=== PATIENT | female | born 1955 | race Caucasian/White ===

== ENCOUNTER 2018-12-07 17:30 | Inpatient (IN) ==
[2018-12-07] MEDS ORDERED: SODIUM CHLORIDE 0.9% 1,000 ML IV STA (18:16)
[2018-12-07] MEDS ORDERED: methylPREDNISolone SOD SUC 125 MG/2 ML VIAL IV STA (18:16)
[2018-12-07] MEDS ORDERED: ALBUTEROL/IPRATROPIUM 3 ML NEB RESP TX STA ×2 (18:16→19:54)
[2018-12-07 18:39] LABS: Basophils # 0.1 10*3/uL (0.0-0.2); Basophils % 0.5 % (0.0-0.8); Eosinophils % 0.1 % (0.00-10.9); Hematocrit 41.5 VOL% (35.7-47.0); Hemoglobin 13.4 GM/DL (12.0-16.0); Immature Granulocytes % 0.5 %; Immature Granulocytes Absolute 0.05 #; Lymphocytes # 0.8 10*3/uL (1.4-4.0); Lymphocytes % 7.6 % (21.3-54.2); Mean Corpuscular HGB Conc 32.3 GM/DL (32-36); Mean Corpuscular Hemoglobin 30 PG (27-34); Mean Corpuscular Volume 92.8 FL (87-102); Mean Platelet Volume 9.8 FL (9.6-12.0); Monocytes # 1.8 10*3/uL (0.11-0.8); Monocytes % 16.9 % (1.7-12.7); Neutrophils # 8.1 10*3/uL (1.4-7.4); Neutrophils % 74.4 % (38.7-73.9); Platelet Count 299 T/CUMM (130-400); Red Blood Count 4.47 MC/CUMM (3.8-5.5); Red Cell Distribution Width 12.6 % (9.3-17.3); White Blood Count 10.9 T/CUMM (4-12)
[2018-12-07 18:47] LABS: INR 1.2; PT Patient Result 12.5 SECS
[2018-12-07 18:57] LABS: Albumin 3.3 G/DL (3.4-5.0); Bilirubin,Total 0.4 MG/DL (0.2-1.0); Calcium 9.5 MG/DL (8.5-10.1); Osmolality,Calculated 285.4 MOS/KG (273-304); Potassium 3.2 MMOL/L (3.5-5.1); Total Protein 8.2 G/DL (6.4-8.3)
[2018-12-07] MEDS ORDERED: POTASSIUM BICARB EFFERVESCENT 25 MEQ TABLET PO ONE (19:46)
[2018-12-07] MEDS ORDERED: LEVOFLOXACIN INJ 500 MG in PREMIX 1 EACH IV STA (20:01)
[2018-12-07] MEDS ORDERED: ALBUTEROL 2.5 MG/3 ML NEB RESP TX PRN (20:05)
[2018-12-07] MEDS ORDERED: MORPHINE 4 MG/1 ML VIAL IV PRN (20:05)
[2018-12-07] MEDS ORDERED: NICOTINE 21 MG/24 HR PATCH TRANSDERM PRN (20:05)
[2018-12-07] MEDS ORDERED: diphenhydrAMINE CAP 25 MG CAPSULE PO PRN (20:05)
[2018-12-07] MEDS ORDERED: BISACODYL 5 MG TABLET PO PRN (20:05)
[2018-12-07] MEDS ORDERED: guaiFENesin/DM ER 600-30 MG TABLET PO PRN (20:05)
[2018-12-07 21:07] LABS: ABG Base Excess -0.4 MMOL/L (-2.5-2.5); ABG HCO3 22.9 MMOL/L (20-26); ABG Oxygen Saturation 95.1 % (95-100); ABG PCO2 33.6 MM HG (35-48); ABG PH 7.451 (7.35-7.45); ABG PO2 74.6 MM HG (80-95); ABG TCO2 23.9 MMOL/L (23-27); Allen Test Positive
[2018-12-07 21:20] LABS: Anisocytosis Slight; Lymphocytes 7 % (20-55); Segmented Neutrophils 81 % (50-85); Total Cells Counted 100
[2018-12-07 21:21] LABS: Macrocytosis Slight; Polychromasia Slight
[2018-12-07 21:22] LABS: Ovalocytes Slight; Platelet Estimate Normal
[2018-12-07] MEDS: ACETAMINOPHEN 325 MG TABLET PO PRN (22:18)
[2018-12-07] MEDS: cefTRIAXone 1,000 MG in SYRINGE 1 EACH IV SCH (22:19)
[2018-12-07] MEDS: ONDANSETRON 4 MG/2 ML VIAL IV PRN (22:20)
[2018-12-08] MEDS: ERGOCALCIFEROL 50,000 UNIT CAPSULE PO SCH (00:49)
[2018-12-08] MEDS: ALBUTEROL/IPRATROPIUM 3 ML NEB RESP TX SCH ×5 (00:55→20:23)
[2018-12-08 04:48] LABS: Basophils % 0.3 % (0.0-0.8); Hematocrit 36.9 VOL% (35.7-47.0); Hemoglobin 11.7 GM/DL (12.0-16.0); Immature Granulocytes % 0.6 %; Immature Granulocytes Absolute 0.04 #; Lymphocytes # 0.3 10*3/uL (1.4-4.0); Mean Corpuscular HGB Conc 31.7 GM/DL (32-36); Mean Corpuscular Hemoglobin 30 PG (27-34); Mean Corpuscular Volume 93.7 FL (87-102); Mean Platelet Volume 10.2 FL (9.6-12.0); Monocytes # 0.3 10*3/uL (0.11-0.8); Neutrophils # 6.1 10*3/uL (1.4-7.4); Neutrophils % 90.1 % (38.7-73.9); Platelet Count 260 T/CUMM (130-400); Red Blood Count 3.94 MC/CUMM (3.8-5.5); Red Cell Distribution Width 12.6 % (9.3-17.3); White Blood Count 6.8 T/CUMM (4-12)
[2018-12-08 05:14] LABS: Calcium 8.7 MG/DL (8.5-10.1); Osmolality,Calculated 289.4 MOS/KG (273-304); Potassium 3.4 MMOL/L (3.5-5.1)
[2018-12-08] MEDS: methylPREDNISolone SOD SUC 40 MG/1 ML VIAL IV SCH ×3 (06:48→20:27)
[2018-12-08 08:18] LABS: Apearance,Urine CLEAR (Clear); Bilirubin,Urine Negative (Negative); Blood, Urine Negative (Negative); Glucose,Urine (UA) Negative (Negative); Hyaline Casts,Urine 5 /LPF (0-3); Ketones,Urine 5 mg/dL (Negative); Mucus,Urine Occasional /LPF (Occasional); Nitrite,Urine Negative (Negative); Protein,Urine 30 MG/DL; RBC,Urine 1 /HPF (0-4); Squamous Epithelial Cell,Urine Occasional /HPF (0-10); Urine Color Yellow (Yellow); Urine Specific Gravity 1.027 (1.001-1.035); WBC,Urine 4 /HPF (0-6)
[2018-12-08] MEDS ORDERED: TURMERIC CURCUMIN 500 MG PO SCH (09:00)
[2018-12-08] MEDS ORDERED: BUDESONIDE/FORMOTEROL 160-4.5 INHALER 6 GM INH SCH (09:00)
[2018-12-08] MEDS: ATORVASTATIN 10 MG TABLET PO SCH (09:03)
[2018-12-08] MEDS: ACETAMINOPHEN 325 MG TABLET PO PRN (09:03)
[2018-12-08] MEDS: DILTIAZEM CD 240 MG CAPSULE PO SCH (09:04)
[2018-12-08] MEDS: RIVAROXABAN 20 MG TABLET PO SCH ×2 (09:05→16:56)
[2018-12-08] MEDS: TOLTERODINE LA 4 MG CAPSULE PO SCH (09:05)
[2018-12-08] MEDS: SERTRALINE 50 MG TABLET PO SCH (09:06)
[2018-12-08] MEDS: DULoxetine 30 MG CAPSULE PO SCH (09:06)
[2018-12-08] MEDS: LOSARTAN/HCTZ 50-12.5 MG TABLET PO SCH (09:06)
[2018-12-08] MEDS: BUDESONIDE/FORMOTEROL 160-4.5 INHALER 6 GM INH SCH (09:10)
[2018-12-08] MEDS: POTASSIUM CHLORIDE 20 MEQ TABLET PO SCH ×3 (10:12→21:24)
[2018-12-08] MEDS: cefTRIAXone 1,000 MG in SYRINGE 1 EACH IV SCH (20:30)
[2018-12-08] MEDS: ZALEPLON 5 MG CAPSULE PO PRN (21:19)
[2018-12-09] MEDS: ALBUTEROL/IPRATROPIUM 3 ML NEB RESP TX SCH ×6 (00:34→23:15)
[2018-12-09] MEDS: ONDANSETRON 4 MG/2 ML VIAL IV PRN ×2 (01:35→23:05)
[2018-12-09] MEDS: POTASSIUM CHLORIDE 20 MEQ TABLET PO SCH (04:01)
[2018-12-09 05:05] LABS: Calcium 8.7 MG/DL (8.5-10.1); Osmolality,Calculated 293.4 MOS/KG (273-304); Potassium 3.7 MMOL/L (3.5-5.1)
[2018-12-09] MEDS: methylPREDNISolone SOD SUC 40 MG/1 ML VIAL IV SCH ×3 (05:27→21:01)
[2018-12-09] MEDS: DULoxetine 30 MG CAPSULE PO SCH (08:29)
[2018-12-09] MEDS: LOSARTAN/HCTZ 50-12.5 MG TABLET PO SCH (08:29)
[2018-12-09] MEDS: RIVAROXABAN 20 MG TABLET PO SCH (08:30)
[2018-12-09] MEDS: DILTIAZEM CD 240 MG CAPSULE PO SCH (08:30)
[2018-12-09] MEDS: SERTRALINE 50 MG TABLET PO SCH (08:30)
[2018-12-09] MEDS: TOLTERODINE LA 4 MG CAPSULE PO SCH (08:30)
[2018-12-09] MEDS: ATORVASTATIN 10 MG TABLET PO SCH (08:30)
[2018-12-09] MEDS: BUDESONIDE/FORMOTEROL 160-4.5 INHALER 6 GM INH SCH (08:31)
[2018-12-09] MEDS ORDERED: EMBEDA PO SCH (09:00)
[2018-12-09] MEDS: cefTRIAXone 1,000 MG in SYRINGE 1 EACH IV SCH (21:02)
[2018-12-09] MEDS: ACETAMINOPHEN 325 MG TABLET PO PRN (23:04)
[2018-12-10] MEDS: ZALEPLON 5 MG CAPSULE PO PRN ×2 (00:05→21:01)
[2018-12-10] MEDS: methylPREDNISolone SOD SUC 40 MG/1 ML VIAL IV SCH ×4 (02:43→21:05)
[2018-12-10] MEDS: ALBUTEROL/IPRATROPIUM 3 ML NEB RESP TX SCH ×6 (03:36→23:30)
[2018-12-10] MEDS: ONDANSETRON 4 MG/2 ML VIAL IV PRN ×3 (03:46→23:34)
[2018-12-10 06:11] LABS: Calcium 8.9 MG/DL (8.5-10.1); Osmolality,Calculated 292.3 MOS/KG (273-304); Potassium 3.4 MMOL/L (3.5-5.1)
[2018-12-10] MEDS ORDERED: POTASSIUM CHLORIDE 20 MEQ TABLET PO ONE (07:24)
[2018-12-10] MEDS: RIVAROXABAN 20 MG TABLET PO SCH (08:33)
[2018-12-10] MEDS: TOLTERODINE LA 4 MG CAPSULE PO SCH (08:33)
[2018-12-10] MEDS: SERTRALINE 50 MG TABLET PO SCH (08:33)
[2018-12-10] MEDS: DULoxetine 30 MG CAPSULE PO SCH (08:33)
[2018-12-10] MEDS: LOSARTAN/HCTZ 50-12.5 MG TABLET PO SCH (08:33)
[2018-12-10] MEDS: ATORVASTATIN 10 MG TABLET PO SCH (08:33)
[2018-12-10] MEDS: DILTIAZEM CD 240 MG CAPSULE PO SCH (08:34)
[2018-12-10] MEDS: BUDESONIDE/FORMOTEROL 160-4.5 INHALER 6 GM INH SCH (08:36)
[2018-12-10] MEDS: ACETAMINOPHEN 325 MG TABLET PO PRN (13:03)
[2018-12-10] MEDS: oxyCODONE/ACETAMINOPHEN 5-325 MG TABLET PO PRN (21:02)
[2018-12-10] MEDS: cefTRIAXone 1,000 MG in SYRINGE 1 EACH IV SCH (21:06)
[2018-12-10] MEDS: PANTOPRAZOLE 40 MG TABLET PO SCH (23:30)
[2018-12-11] MEDS: ACETAMINOPHEN 325 MG TABLET PO PRN ×2 (01:30→20:08)
[2018-12-11] MEDS: ZALEPLON 5 MG CAPSULE PO PRN ×2 (01:30→20:08)
[2018-12-11] MEDS: methylPREDNISolone SOD SUC 40 MG/1 ML VIAL IV SCH ×4 (03:21→20:10)
[2018-12-11] MEDS: ALBUTEROL/IPRATROPIUM 3 ML NEB RESP TX SCH ×6 (03:57→22:48)
[2018-12-11 06:06] LABS: Calcium 8.2 MG/DL (8.5-10.1); Osmolality,Calculated 293.3 MOS/KG (273-304); Potassium 3.4 MMOL/L (3.5-5.1)
[2018-12-11] MEDS: BUDESONIDE/FORMOTEROL 160-4.5 INHALER 6 GM INH SCH (08:35)
[2018-12-11] MEDS: TOLTERODINE LA 4 MG CAPSULE PO SCH (08:35)
[2018-12-11] MEDS: DULoxetine 30 MG CAPSULE PO SCH (08:35)
[2018-12-11] MEDS: POTASSIUM CHLORIDE 20 MEQ TABLET PO SCH ×3 (08:35→18:09)
[2018-12-11] MEDS: LOSARTAN/HCTZ 50-12.5 MG TABLET PO SCH (08:36)
[2018-12-11] MEDS: RIVAROXABAN 20 MG TABLET PO SCH (08:36)
[2018-12-11] MEDS: SERTRALINE 50 MG TABLET PO SCH (08:36)
[2018-12-11] MEDS: DILTIAZEM CD 240 MG CAPSULE PO SCH (08:36)
[2018-12-11] MEDS: PANTOPRAZOLE 40 MG TABLET PO SCH ×2 (08:36→20:09)
[2018-12-11] MEDS: ATORVASTATIN 10 MG TABLET PO SCH (08:36)
[2018-12-11] MEDS: oxyCODONE/ACETAMINOPHEN 5-325 MG TABLET PO PRN (10:28)
[2018-12-11] MEDS: cefTRIAXone 1,000 MG in SYRINGE 1 EACH IV SCH (20:11)
[2018-12-12] MEDS: ALBUTEROL/IPRATROPIUM 3 ML NEB RESP TX SCH ×6 (02:29→23:30)
[2018-12-12] MEDS: methylPREDNISolone SOD SUC 40 MG/1 ML VIAL IV SCH ×4 (02:56→22:02)
[2018-12-12] MEDS: ACETAMINOPHEN 325 MG TABLET PO PRN ×2 (05:04→17:30)
[2018-12-12] MEDS: SERTRALINE 50 MG TABLET PO SCH (09:45)
[2018-12-12] MEDS: BUDESONIDE/FORMOTEROL 160-4.5 INHALER 6 GM INH SCH (09:45)
[2018-12-12] MEDS: PANTOPRAZOLE 40 MG TABLET PO SCH ×2 (09:46→22:02)
[2018-12-12] MEDS: POTASSIUM CHLORIDE 20 MEQ TABLET PO SCH (09:46)
[2018-12-12] MEDS: RIVAROXABAN 20 MG TABLET PO SCH (09:46)
[2018-12-12] MEDS: LOSARTAN/HCTZ 50-12.5 MG TABLET PO SCH (09:46)
[2018-12-12] MEDS: ATORVASTATIN 10 MG TABLET PO SCH (09:46)
[2018-12-12] MEDS: DILTIAZEM CD 240 MG CAPSULE PO SCH (09:47)
[2018-12-12] MEDS: TOLTERODINE LA 4 MG CAPSULE PO SCH (09:47)
[2018-12-12] MEDS: DULoxetine 30 MG CAPSULE PO SCH (09:53)
[2018-12-12] MEDS: oxyCODONE/ACETAMINOPHEN 5-325 MG TABLET PO PRN ×2 (13:42→22:01)
[2018-12-12] MEDS: cefTRIAXone 1,000 MG in SYRINGE 1 EACH IV SCH (21:59)
[2018-12-12] MEDS: LIDOCAINE 2% VISCOUS 100 ML BOTTLE SWISH/SPIT PRN (22:07)
[2018-12-13] MEDS: ALBUTEROL/IPRATROPIUM 3 ML NEB RESP TX SCH ×7 (02:40→23:00)
[2018-12-13 05:57] LABS: Calcium 8.2 MG/DL (8.5-10.1); Osmolality,Calculated 295.3 MOS/KG (273-304); Potassium 4.1 MMOL/L (3.5-5.1)
[2018-12-13] MEDS: methylPREDNISolone SOD SUC 40 MG/1 ML VIAL IV SCH ×3 (06:35→21:03)
[2018-12-13] MEDS ORDERED: MEPERIDINE 50 MG/1 ML VIAL IM ONE (07:30)
[2018-12-13] MEDS ORDERED: GLYCOPYRROLATE 0.4 MG/2 ML VIAL IM ONE (07:30)
[2018-12-13] MEDS ORDERED: PROMETHAZINE 25 MG/1 ML VIAL IM ONE (07:30)
[2018-12-13] MEDS ORDERED: LIDOCAINE 2% VISCOUS 100 ML BOTTLE SWISH/SPIT ONE (08:00)
[2018-12-13] MEDS ORDERED: LIDOCAINE 2% 20 ML VIAL RESP TX ONE (08:00)
[2018-12-13] MEDS ORDERED: MIDAZOLAM 2 MG/2 ML VIAL IV ONE (08:00)
[2018-12-13] MEDS ORDERED: LIDOCAINE 1% 20 ML VIAL MISC INJ ONE (08:00)
[2018-12-13] MEDS ORDERED: MIDAZOLAM 2 MG/2 ML VIAL ONE (09:11)
[2018-12-13] MEDS: SERTRALINE 50 MG TABLET PO SCH (10:55)
[2018-12-13] MEDS: ATORVASTATIN 10 MG TABLET PO SCH (10:56)
[2018-12-13] MEDS: LOSARTAN/HCTZ 50-12.5 MG TABLET PO SCH (10:56)
[2018-12-13] MEDS: PANTOPRAZOLE 40 MG TABLET PO SCH ×2 (10:56→21:03)
[2018-12-13] MEDS: DILTIAZEM CD 240 MG CAPSULE PO SCH (10:56)
[2018-12-13] MEDS: TOLTERODINE LA 4 MG CAPSULE PO SCH (10:57)
[2018-12-13] MEDS: BUDESONIDE/FORMOTEROL 160-4.5 INHALER 6 GM INH SCH (10:59)
[2018-12-13] MEDS: RIVAROXABAN 20 MG TABLET PO SCH (11:02)
[2018-12-13] MEDS: DULoxetine 30 MG CAPSULE PO SCH (11:02)
[2018-12-13] MEDS: POTASSIUM CHLORIDE 20 MEQ TABLET PO SCH (13:10)
[2018-12-13] MEDS: cefTRIAXone 1,000 MG in SYRINGE 1 EACH IV SCH (21:03)
[2018-12-14] MEDS: ALBUTEROL/IPRATROPIUM 3 ML NEB RESP TX SCH ×4 (03:00→14:00)
[2018-12-14] MEDS: ACETAMINOPHEN 325 MG TABLET PO PRN (05:35)
[2018-12-14] MEDS: methylPREDNISolone SOD SUC 40 MG/1 ML VIAL IV SCH ×2 (05:36→13:41)
[2018-12-14] MEDS: LOSARTAN/HCTZ 50-12.5 MG TABLET PO SCH (08:37)
[2018-12-14] MEDS: SERTRALINE 50 MG TABLET PO SCH (08:37)
[2018-12-14] MEDS: RIVAROXABAN 20 MG TABLET PO SCH (08:37)
[2018-12-14] MEDS: PANTOPRAZOLE 40 MG TABLET PO SCH (08:37)
[2018-12-14] MEDS: TOLTERODINE LA 4 MG CAPSULE PO SCH (08:37)
[2018-12-14] MEDS: POTASSIUM CHLORIDE 20 MEQ TABLET PO SCH (08:37)
[2018-12-14] MEDS: ERGOCALCIFEROL 50,000 UNIT CAPSULE PO SCH (08:38)
[2018-12-14] MEDS: DILTIAZEM CD 240 MG CAPSULE PO SCH (08:38)
[2018-12-14] MEDS: ATORVASTATIN 10 MG TABLET PO SCH (08:38)
[2018-12-14] MEDS: DULoxetine 30 MG CAPSULE PO SCH (08:38)
[2018-12-14] MEDS: BUDESONIDE/FORMOTEROL 160-4.5 INHALER 6 GM INH SCH (08:39)
[2018-12-14] MEDS: LIDOCAINE 2% VISCOUS 100 ML BOTTLE SWISH/SPIT PRN (13:41)
[2018-12-14] MEDS ORDERED: CLOTRIMAZOLE 10 MG TROCHE PO SCH (14:00)
[2018-12-14 15:46] VITALS: BP 133/83
== END 2018-12-14 17:58 | disposition home health service (06) | DRG 191 ==
LOC: N.ED 17:30 → N.EDINP 17:30 → SUATTDRO 20:05 → N.2E 21:25 → SUATTDRO 12-09 07:15
PROVIDERS: ADMIT Internal Medicine; ATTEND Hospitalist